=== PATIENT | male | born 1950 | race Caucasian/White ===

== ENCOUNTER 2017-05-25 18:30 | Observation (INO) | payer OTHER, MEDICARE, BC ==
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
[2017-05-25] MEDS ORDERED: cloNIDine 0.1 MG Tab PO ONE ×2 (20:46→22:45)
[2017-05-25] MEDS ORDERED: Lisinopril 5 MG Tab PO ONE (20:46)
[2017-05-25] MEDS ORDERED: Potassium Chloride 20 MEQ Tab.ER PO ONE (20:52)
[2017-05-25] MEDS ORDERED: Ondansetron 4 MG Tab.DIS PO PRN (21:49)
[2017-05-25] MEDS ORDERED: Zolpidem 5 MG Tab PO PRN (21:49)
[2017-05-25] MEDS ORDERED: Magnesium Hydroxide 400 MG/5 ML Susp 30 ML Cup PO PRN (21:49)
[2017-05-25] MEDS ORDERED: Morphine 2 MG/ML Syringe IVPUSH PRN (21:49)
[2017-05-25] MEDS ORDERED: FLU Vacc QS 2017-18 (36mos UP)/PF 60 MCG/0.5 ML Syringe IM ONE (22:00)
[2017-05-25] MEDS ORDERED: Sodium Chloride 0.9% 10 ML Syringe FLUSH PRN (22:36)
[2017-05-25] MEDS ORDERED: Sodium Chloride 0.9% 10 ML SDV FLUSH SCH (22:45)
[2017-05-26] MEDS: Acetaminophen 325 MG Tab PO PRN ×2 (04:45→15:51)
[2017-05-26] MEDS ORDERED: Lisinopril 5 MG Tab PO SCH (09:00)
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
--- NOTE | 2017-05-26 10:59 | CT ---
INDICATION: Follow-up possible cerebellar bleed. CT HEAD WITHOUT CONTRAST: Serial contiguous 2.5 and 5-mm sections were obtained through the brain without contrast, 05/26/2017, and compared with 05/25 and 07/27/2011. Total Exam DLP = 845.81 mGy-cm. In 2012, there was no area of increased density seen in the left lateral anterior cerebellum. At this time, there is an identical area of increased density focally in the left cerebellum. It is identical to 05/25/2017 examination done last night. This may represent a tiny area of hemorrhage. It is not felt to be artifactual. No surrounding edema was identified to strongly suggest an acute process, however, and MRI is recommended for further evaluation , depending upon clinical necessity. No shift of midline structures or ventricular abnormalities were identified. Cavum septum pellucidum is noted, as previously. Benign appearing calcifications are seen, as previously. Mild frontal cortical atrophy is again noted. No other abnormal areas of density were seen. Thickening of the lining and a frothy fluid is suggested in the left sphenoidal air cell. Thickening of the lining of a frontally located right ethmoidal air cell is noted. Findings may represent sinusitis, but should be correlated clinically. Mastoid air cells appear to be well aerated. No definite cranial abnormality was seen. IMPRESSION: 1. Persistent area of irregular increased density focally in the left cerebellum. Question the possibility of an early bleed. However, there is no surrounding edema and MRI is recommended for further evaluation. 2. Possible left sphenoidal sinusitis with minimal thickening of a few of the anterior right ethmoidal air cells also noted. [facility]
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
[2017-05-26] MEDS ORDERED: Gadoteridol 279.3 MG/ML 20 ML SDV IV SCH (13:45)
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
[2017-05-26 18:47] VITALS: BP 130/77
== END 2017-05-26 18:15 | disposition home or self-care (01) ==
LOC: FB.ED 18:30 → FB.MS 20:48 → UNDOADMOB 20:48
PROVIDERS: ADMIT Emergency Medicine; ATTEND Family Medicine
DX: S00.93XA Contusion of unspecified part of head, initial encounter (principal); S50.12XA Contusion of left forearm, initial encounter; I10 Essential (primary) hypertension; V87.7XXA Person injured in collision between other specified motor vehicles (traffic), initial encounter; Z79.899 Other long term (current) drug therapy; Z98.890 Other specified postprocedural states
CPT/HCPCS: 36415; 70450; 70553; 72125; 73090; 80053; 81001; 82962; 83036; 85025; 99285; A9270; G0008; J2270; J7050; 90686; 96374; G0378

== ENCOUNTER 2018-12-19 15:48 | Emergency (ER) | payer MEDICARE, BC ==
[2018-12-19] MEDS: Nitroglycerin 0.4 MG Tab.SL SL PRN ×3 (15:58→16:20)
[2018-12-19] MEDS ORDERED: Aspirin 81 MG Tab.Chew PO ONE (15:59)
[2018-12-19] MEDS: Sodium Chloride 0.9% 10 ML Syringe FLUSH PRN ×2 (16:06→16:45)
--- NOTE | 2018-12-19 16:14 | EDM.PDOC ---
ED HPI GENERAL MEDICAL PROBLEM - General Chief Complaint: Cardiovascular Problem Stated Complaint: CHEST PAIN Time Seen by Provider: 12/19/18 16:09 Source of Information: Reports: Patient History Limitations: Reports: No Limitations - History of Present Illness INITIAL COMMENTS - FREE TEXT/NARRATIVE: Presents with left sided non-radiating chest pressure x 2 hours. Denies SOB. No prior h/o CAD. Has a h/o HTN but does not take meds. Onset: Sudden Duration: Hour(s): Location: Reports: Chest Quality: Reports: Pressure Severity: Moderate Associated Symptoms: Reports: Chest Pain. Denies: Cough, Shortness of Breath - Related Data Allergies Allergy/AdvReac Type Severity Reaction Status Date / Time No Known Allergies Allergy Verified 12/19/18 16:12 Home Meds: Home Meds NK [No Known Home Meds] 12/19/18 [History] Past Medical History Cardiovascular History: Reports: Hypertension. Denies: CAD Musculoskeletal History: Reports: Arthritis - Past Surgical History Musculoskeletal Surgical History: Reports: Arthroscopic Knee Social & Family History - Family History Oncologic: Reports: Lung - Tobacco Use Smoking Status *Q: Never Smoker - Caffeine Use Caffeine Use: Reports: Coffee Caffeine Use Comment: ABOUT A QUART OF COFFEE/DAILY. ` ED ROS GENERAL - Review of Systems Review Of Systems: ROS reveals no pertinent complaints other than HPI. ED EXAM, GENERAL - Physical Exam Exam: See Below Exam Limited By: No Limitations General Appearance: Alert, WD/WN, No Apparent Distress Ears: Normal External Exam Nose: Normal Inspection Throat/Mouth: No Airway Compromise Head: Atraumatic, Normocephalic Neck: Supple Respiratory/Chest: No Respiratory Distress, Lungs Clear, Chest Non-Tender Cardiovascular: Regular Rate, Rhythm, No Murmur GI/Abdominal: No Distention Extremities: Normal Range of Motion Neurological: Alert, Normal Cognition, No Motor/Sensory Deficits Psychiatric: Normal Affect, Normal Mood Skin Exam: Warm, Dry, Intact EKG INTERPRETATION EKG Date: 12/19/18 Time: 16:08 Rhythm: NSR Rate (Beats/Min): 72 [place]: LAD-Left [place] Deviation P-Wave: Present QRS: Normal ST-T: Other (possible mild elevation I + II) Course - Vital Signs Last Recorded V/S: Last Vital Signs Temp Pulse Resp BP 137/78 12/19/18 16:20 Pulse Ox Vital Signs - 24 hr 12/19/18 12/19/18 12/19/18 15:58 16:07 16:20 Blood Pressure 233/122 H 152/99 H 137/78 - Orders/Labs/Meds Orders: Active Orders 24 hr Category Date Time Status EKG Documentation Completion [RC] ASDIRECTED Care 12/19/18 15:58 Active EKG Documentation Completion [RC] ASDIRECTED Care 12/19/18 16:28 Active CXR [Chest 1V Frontal] [CR] Stat Exams 12/19/18 15:57 Taken Heparin Sodium/0.45% NaCl [Heparin 25,000 Units in 1/2 Med 12/19/18 16:45 Active NS 500 ML] 500 ml IV ASDIRECTED Nitroglycerin/D5W [Nitroglycerin 25 MG/D5W 250 ML] Med 12/19/18 17:00 Ordered 25 mg in 250 ml IV TITRATE Sodium Chloride 0.9% [Saline Flush] Med 12/19/18 15:58 Active 10 ml FLUSH ASDIRECTED PRN Saline Lock Insert [OM.PC] Routine Oth 12/19/18 15:58 Ordered EKG 12 Lead [EK] Stat Ther 12/19/18 15:57 Ordered EKG 12 Lead [EK] Stat Ther 12/19/18 16:28 Ordered Medication Orders Heparin Sodium/Sodium Chloride (Heparin 25,000 Units In 1/2 Ns 500 Ml) 500 mls @ 20 mls/hr IV ASDIRECTED BOLA Last Admin: 12/19/18 16:56 Dose: 20 mls/hr Nitroglycerin/Dextrose (Nitroglycerin 25 Mg/D5w 250 Ml) 25 mg in 250 mls @ 6 mls/hr IV TITRATE BOLA; Protocol Sodium Chloride (Saline Flush) 10 ml FLUSH ASDIRECTED PRN PRN Reason: Keep Vein Open Last Admin: 12/19/18 16:45 Dose: 10 ml Admin: 12/19/18 16:06 Dose: 10 ml Labs: Laboratory Tests 12/19/18 12/19/18 12/19/18 Range/Units 16:02 16:02 16:02 WBC 10.7 (4.5-12.0) X10-3/uL RBC 5.75 (4.30-5.75) x10(6)uL Hgb 17.0 (13.5-17.8) g/dL Hct 49.6 (30.0-51.3) % MCV 86.3 (80-96) fL MCH 29.5 (27.7-33.6) pg MCHC 34.2 (32.2-35.4) g/dL RDW 13.2 (11.5-15.5) % Plt Count 221 (125-369) X10(3)uL MPV 9.0 (7.4-10.4) fL Add Manual Diff Yes Neutrophils % (Manual) 53 (46-82) % Band Neutrophils % 3 (0-6) % Lymphocytes % (Manual) 32 (13-37) % Monocytes % (Manual) 6 (4-12) % Eosinophils % (Manual) 5 (0-5) % Basophils % (Manual) 1 (0-2) % PT 10.3 (8.7-11.1) INR 1.06 (0.89-1.13) APTT 24.6 (24.4-33.2) SECONDS D-Dimer, Quantitative (0.0-0.59) mg/LFEU Sodium 146 H (135-145) mmol/L Potassium 3.8 (3.5-5.3) mmol/L Chloride 107 (100-110) mmol/L Carbon Dioxide 28 (21-32) mmol/L BUN 20 H (7-18) mg/dL Creatinine 1.1 (0.70-1.30) mg/dL Est Cr Clr Drug Dosing TNP Estimated GFR (MDRD) > 60 (>60) BUN/Creatinine Ratio 18.2 (9-20) Glucose 126 H (80-116) mg/dL Calcium 9.4 (8.6-10.2) mg/dL Total Bilirubin 0.5 (0.1-1.3) mg/dL AST 19 (5-25) IU/L ALT 34 (12-36) U/L Alkaline Phosphatase 93 (56-112) IU/L Troponin I (<0.017-0.056) ng/mL NT-Pro-B Natriuret Pep (<=125) pg/mL Total Protein 7.4 (6.0-8.0) g/dL Albumin 3.8 (3.2-4.6) g/dL Globulin 3.6 g/dL Albumin/Globulin Ratio 1.1 12/19/18 12/19/1812/19/19 Range/Units 16:02 16:02 16:02 WBC (4.5-12.0) X10-3/uL RBC (4.30-5.75) x10(6)uL Hgb (13.5-17.8) g/dL Hct (30.0-51.3) % MCV (80-96) fL MCH (27.7-33.6) pg MCHC (32.2-35.4) g/dL RDW (11.5-15.5) % Plt Count (125-369) X10(3)uL MPV (7.4-10.4) fL Add Manual Diff Neutrophils % (Manual) (46-82) % Band Neutrophils % (0-6) % Lymphocytes % (Manual) (13-37) % Monocytes % (Manual) (4-12) % Eosinophils % (Manual) (0-5) % Basophils % (Manual) (0-2) % PT (8.7-11.1) INR (0.89-1.13) APTT (24.4-33.2) SECONDS D-Dimer, Quantitative 0.57 (0.0-0.59) mg/LFEU Sodium (135-145) mmol/L Potassium (3.5-5.3) mmol/L Chloride (100-110) mmol/L Carbon Dioxide (21-32) mmol/L BUN (7-18) mg/dL Creatinine (0.70-1.30) mg/dL Est Cr Clr Drug Dosing Estimated GFR (MDRD) (>60) BUN/Creatinine Ratio (9-20) Glucose (80-116) mg/dL Calcium (8.6-10.2) mg/dL Total Bilirubin (0.1-1.3) mg/dL AST (5-25) IU/L ALT (12-36) U/L Alkaline Phosphatase (56-112) IU/L Troponin I < 0.017 L (<0.017-0.056) ng/mL NT-Pro-B Natriuret Pep 171 H (<=125) pg/mL Total Protein (6.0-8.0) g/dL Albumin (3.2-4.6) g/dL Globulin g/dL Albumin/Globulin Ratio Meds: Medications Generic Name Dose Route Start Last Admin Trade Name Freq PRN Reason Stop Dose Admin Heparin Sodium/Sodium Chloride 500 mls @ 20 mls/hr 12/19/18 16:45 12/19/18 16 :56 Heparin 25,000 Units In 1/2 Ns 500 Ml IV 20 mls/hr ASDIRECTED BOLA Administration Nitroglycerin/Dextrose 25 mg in 250 mls @ 6 mls/hr 12/19/18 17:00 Nitroglycerin 25 Mg/D5w 250 Ml IV TITRATE BOLA Protocol 10 MCG/MIN Sodium Chloride 10 ml 12/19/18 15:58 12/19/18 16:45 Saline Flush FLUSH 10 ml ASDIRECTED PRN Administration Keep Vein Open Discontinued Medications Generic Name Dose Route Start Last Admin Trade Name Juan Ramonq PRN Reason Stop Dose Admin Aspirin 324 mg 12/19/18 15:59 12/19/18 15:48 Aspirin PO 12/19/18 16:00 324 mg ONETIME ONE Administration Clopidogrel Bisulfate 300 mg 12/19/18 16:48 12/19/18 16:53 Plavix PO 12/19/18 16:49 300 mg ONETIME ONE Administration Heparin Sodium (Porcine) 4,000 units 12/19/18 16:44 12/19/18 16:54 Heparin Sodium IVPUSH 12/19/18 16:45 4,000 units .BOLUS ONE Administration Labetalol HCl 10 mg 12/19/18 16:45 12/19/18 16:44 Normodyne IV 12/19/18 16:46 10 mg ONETIME ONE Administration Nitroglycerin 0.4 mg 12/19/18 15:59 12/19/18 16:20 Nitrostat SL 0.4 mg Q5M PRN Administration Chest Pain - Radiology Interpretation Free Text/Narrative:: CXR: possible interstitial edema vs underpenetrated portable CXR - Re-Assessments/Exams Free Text/Narrative Re-Assessment/Exam: 12/19/18 17:00 Chest pain resolved after NTG 0.4mg SL x 3. Labetolol 10mg IV given, BP improved to 137/78. Dr. Kearns ([facility]) reviewed the EKG, per his interpretation, there is possibly mild ST elevation in I + II, and labeling this as an "impending" ST elevation IN. He recommends Heparin drip, Plavix 300mg PO, ASA 324mg PO and Nitro drip; and transfer to [facility] rd lab technician. Departure - Departure Time of Disposition: 17:02 Disposition: DC/Tfer to Acute Hospital 02 Reason for Transfer *Q: Primary PCI Indicated Condition: Serious Clinical Impression: Myocardial infarct Qualifiers: Myocardial infarction type: other Qualified Code(s): I21.A9 - Other myocardial infarction type Referrals: Chuy Rizvi MD [Primary Care Provider] - Forms: ED Department Discharge - My Orders Last 24 Hours: My Active Orders 12/19/18 15:57 CXR [Chest 1V Frontal] [CR] Stat EKG 12 Lead [EK] Stat 12/19/18 15:58 EKG Documentation Completion [RC] ASDIRECTED Sodium Chloride 0.9% [Saline Flush] 10 ml FLUSH ASDIRECTED PRN Saline Lock Insert [OM.PC] Routine 12/19/18 16:28 EKG Documentation Completion [RC] ASDIRECTED EKG 12 Lead [EK] Stat 12/19/18 16:45 Heparin Sodium/0.45% NaCl [Heparin 25,000 Units in 1/2 NS 500 ML] 500 ml IV ASDIRECTED 12/19/18 17:00 Nitroglycerin/D5W [Nitroglycerin 25 MG/D5W 250 ML] 25 mg in 250 ml IV TITRATE - Assessment/Plan Last 24 Hours: My Active Orders 12/19/18 15:57 CXR [Chest 1V Frontal] [CR] Stat EKG 12 Lead [EK] Stat 12/19/18 15:58 EKG Documentation Completion [RC] ASDIRECTED Sodium Chloride 0.9% [Saline Flush] 10 ml FLUSH ASDIRECTED PRN Saline Lock Insert [OM.PC] Routine 12/19/18 16:28 EKG Documentation Completion [RC] ASDIRECTED EKG 12 Lead [EK] Stat 12/19/18 16:45 Heparin Sodium/0.45% NaCl [Heparin 25,000 Units in 1/2 NS 500 ML] 500 ml IV ASDIRECTED 12/19/18 17:00 Nitroglycerin/D5W [Nitroglycerin 25 MG/D5W 250 ML] 25 mg in 250 ml IV TITRATE
[2018-12-19 16:21] VITALS: BP 137/78
[2018-12-19] MEDS ORDERED: Heparin Sodium 5,000 Units/ML Vial IVPUSH ONE (16:44)
[2018-12-19] MEDS ORDERED: Labetalol 100 MG/20 ML MDV IV ONE (16:45)
[2018-12-19] MEDS ORDERED: Heparin Sodium/0.45% NaCl 500 ML IV SCH (16:45)
[2018-12-19] MEDS ORDERED: Clopidogrel 75 MG Tab PO ONE (16:48)
[2018-12-19] MEDS ORDERED: Nitroglycerin/D5W 25 MG/250 ML BOTTLE IV SCH (17:00)
--- NOTE | 2018-12-20 11:05 | CR ---
INDICATION: Chest pain. CHEST: A single, portable, AP upright view of the chest was obtained 12/19/18 - no comparisons. Heart appears somewhat prominent in size but is emphasized by poor inspiration and AP positioning. The aorta is tortuous. There appears to be some infiltrate in the right mid lung field and at the left lung base. Upper lung field pulmonary vasculature is somewhat prominent, raising question of CHF. The infiltrates could be on the basis of acute pulmonary edema, although areas of pneumonia would also be a consideration. These findings should be correlated clinically. Evidence of exogenous obesity is noted. Overlying EKG leads are noted. IMPRESSION: 1. ASHD, cardiomegaly, CHF, possible acute pulmonary edema versus, and/or pneumonia bilaterally. 2. Exogenous obesity. Report was called to Dr. Palmer at 1630 hours on 12/19/18. [facility]
== END 2018-12-19 17:15 ==
LOC: FB.ED 15:48
DX: I21.A9 Other myocardial infarction type (principal); I10 Essential (primary) hypertension
CPT/HCPCS: 36415; 71045; 80053; 83880; 84484; 85025; 85379; 85610; 85730; 93005; 96365; 96375; 96376; 99285-25; A9270-GY; J1644; J3490

== ENCOUNTER 2019-09-24 21:08 | Emergency (ER) | payer MEDICARE, BC ==
--- NOTE | 2019-09-24 22:33 | EDM.PDOC ---
ED HPI GENERAL MEDICAL PROBLEM - General Stated Complaint: POSSIBLE BLOOD CLOT Time Seen by Provider: 09/24/19 22:00 Source of Information: Reports: Patient History Limitations: Reports: No Limitations - History of Present Illness INITIAL COMMENTS - FREE TEXT/NARRATIVE: Patient presented to the ED because of left leg pain where a saphenous vein was harvested for his CABG. The pain is sharp,4/10 and worse with ambulation. Denies any fever or chills or dyspnea. - Related Data Allergies Allergy/AdvReac Type Severity Reaction Status Date / Time No Known Allergies Allergy Verified 12/19/18 16:12 Home Meds: Home Meds NK [No Known Home Meds] 12/19/18 [History] Past Medical History Cardiovascular History: Reports: Hypertension. Denies: CAD Musculoskeletal History: Reports: Arthritis - Past Surgical History Musculoskeletal Surgical History: Reports: Arthroscopic Knee Social & Family History - Family History Oncologic: Reports: Lung - Caffeine Use Caffeine Use: Reports: Coffee Caffeine Use Comment: ABOUT A QUART OF COFFEE/DAILY. ` ED ROS GENERAL - Review of Systems Review Of Systems: See Below Constitutional: Reports: No Symptoms HEENT: Reports: No Symptoms Respiratory: Reports: No Symptoms Cardiovascular: Reports: No Symptoms Endocrine: Reports: No Symptoms GI/Abdominal: Reports: No Symptoms : Reports: No Symptoms Musculoskeletal: Reports: No Symptoms Skin: Reports: No Symptoms Neurological: Reports: No Symptoms ED EXAM, GENERAL - Physical Exam Exam: See Below Exam Limited By: No Limitations General Appearance: Alert, WD/WN, No Apparent Distress Ears: Normal External Exam, Hearing Grossly Normal Nose: Normal Inspection, Normal Mucosa, No Blood Throat/Mouth: Normal Inspection, Normal Lips, Normal Teeth, Normal Gums Head: Atraumatic, Normocephalic Neck: Normal Inspection Respiratory/Chest: No Respiratory Distress, Lungs Clear, Normal Breath Sounds Cardiovascular: Normal Peripheral Pulses, Regular Rate, Rhythm, No Edema, No Gallop GI/Abdominal: Normal Bowel Sounds Back Exam: Normal Inspection Extremities: Normal Inspection, Normal Range of Motion, Other (tender ofver the RLE) Course - Vital Signs Text/Narrative:: D-Dimer-neg - Orders/Labs/Meds Labs: Laboratory Tests 09/24/19 Range/Units 21:40 D-Dimer, Quantitative 0.55 (0.0-0.59) mg/LFEU Departure - Departure Time of Disposition: 20:35 Disposition: Home, Self-Care 01 Condition: Good Clinical Impression: Phlebitis - Discharge Information Instructions: Phlebitis, [id number] Referrals: Chuy Rizvi MD [Primary Care Provider] - Additional Instructions: please read discharge instructions on phlebitis apply ice or heat whichever makes the pain feel better ASA 81 mg daily ibuprofen 600 mg with tylenol 1000 mg every 8 hours as needed for pain follow up as needed Sepsis Event Note - Focused Exam Date Exam was Performed: 09/25/19 Time Exam was Performed: 12:17
[2019-09-26 19:36] VITALS: PULSE 52
[2019-09-26 19:49] VITALS: BP 132/72
== END 2019-09-24 22:45 | disposition home or self-care (01) ==
LOC: FB.ED 21:08
DX: I80.3 Phlebitis and thrombophlebitis of lower extremities, unspecified (principal); I10 Essential (primary) hypertension
CPT/HCPCS: 36415; 85379; 99282; 99283